=== PATIENT | female | born 1990 | race Caucasian/White ===

== ENCOUNTER → 2017-02-05 | Outpatient (CLI) | payer MEDICAID ==
[~2017-02-05] MED LIST: MOTRIN-DPS800 MG PO; NIPPLECREAM TP; PRENATAL VITAM1 EAC6 PO
== END | disposition home or self-care (01) ==
LOC: RAD.S 10:37
DX: Z36 Encounter for antenatal screening of mother (principal); Z3A.27 27 weeks gestation of pregnancy

== ENCOUNTER 2017-04-30 19:15 | Inpatient (IN) | payer MEDICAID ==
[2017-05-04] MEDS ORDERED: PRENATAL VITAM1 EAC6 PO (14:38)
[2017-05-04] MEDS ORDERED: MOTRIN-DPS800 MG PO (14:38)
[2017-05-04] MEDS ORDERED: NIPPLECREAM TP (14:39)
== END 2017-05-03 14:40 | disposition home or self-care (01) | DRG 775 ==
DX: O70.1 Second degree perineal laceration during delivery (principal); Z37.0 Single live birth; Z23 Encounter for immunization; Z3A.38 38 weeks gestation of pregnancy